=== PATIENT | male | born 1930 | race Caucasian/White ===

== ENCOUNTER 2018-04-03 10:13 | Emergency (ER) | payer OTHER, MEDICARE ==
--- NOTE | 2018-04-03 11:06 | RAD REPORT ---
EXAM DESCRIPTION: CT - Head Brain Wo Cont - 04/03/2018 10:59 am CLINICAL HISTORY: MENTAL STATUS CHANGE Drowsiness COMPARISON: Head Brain Wo Cont dated 04/09/2016; CT-STROKE BRAIN W/O CONTRAST dated 11/14/2014 TECHNIQUE: All CT scans are performed using dose optimization technique as appropriate and may inclu de automated exposure control or mA/KV adjustment according to patient size. FINDINGS: No intracranial hemorrhage, hydrocephalus or extra-axial fluid collection.Advanced general ized brain atrophy is present with advanced periventricular and deep white matter chronic microvascul ar ischemic changes.No areas of brain edema or evidence of midline shift. Mild fluid is seen in the sphenoid sinus. The calvarium is intact. IMPRESSION: No acute intracranial abnormality.
[2018-04-03 11:12] LABS: Urine Blood 1+ (NEG); Urine Glucose NEGATIVE (NEG); Urine Protein TRACE (NEG)
--- NOTE | 2018-04-03 11:16 | RAD REPORT ---
EXAM DESCRIPTION: RAD - Chest Single View - 04/03/2018 11:07 am CLINICAL HISTORY: Drowsiness Chest pain. COMPARISON: Abdomen 1 View (KUB) dated 07/28/2016; Chest Single View dated 06/24/2016; Chest Single View dated 04/16/2016; Chest Single View dated 04/15/2016 FINDINGS: Portable technique limits examination quality. The lungs are grossly clear. The heart is upper limit normal in size with sternotomy wires present. N o displaced fractures. IMPRESSION: No acute intrathoracic process suspected.
[2018-04-03 11:21] LABS: Urine Bacteria <20 /HPF (NONE SEEN); Urine Culture Reflex Order NOT NEEDED; Urine Mucus 2+ /HPF (NONE SEEN)
[2018-04-03] MEDS ORDERED: NA CHLORIDE 0.9% 250 ML ONE (11:21)
[2018-04-03] MEDS ORDERED: NA CHLORIDE 0.9% 1,000 ML ONE (12:10)
[2018-04-03 12:33] LABS: Absolute Lymphocytes (CBC) 1.6 K/uL (0.7-4.9); Absolute Monocytes 0.6 K/uL (0.1-1.3); Absolute Neutrophil 5.3 K/uL (1.8-8.0); Basophils % 0.5 % (0-1.3); Lymphocytes % 20.1 % (15.3-44.8); MCH 30.5 pg (27.0-35.0); MCV 87.9 fL (80-100); MPV 7.3 fL (7.6-11.3); Monocytes % 7.5 % (3.3-12.3); RBC Red Blood Cell Count 4.44 M/uL (4.33-5.43)
--- NOTE | 2018-04-03 12:33 | EKG ---
Test Date: 2018-04-03 Test Time: 10:26:15 Intel Analyst: GRISELDA MEASUREMENT RESULTS: Intervals: Rate: 61 LA: 154 QRSD: 78 QT: 408 QTc: 410 Russell: P: 66 LA: 154 QRS: 34 T: 69 INTERPRETIVE STATEMENTS: Normal sinus rhythm Normal ECG Compared to ECG 04/12/2016 14:51:40 T-wave abnormality no longer present Prolonged QT interval no longer present Electronically Signed On 04-03-18 12:32:40 REFRIGERATION SERVICE INSPECTOR by Dereje Malloy
[2018-04-03 12:39] LABS: Protime INR 1.08
[2018-04-03 13:06] LABS: BUN Blood Urea Nitrogen 18 mg/dL (7-18); Bicarbonate 32 mmol/L (21-32); Glucose Level 84 mg/dL (74-106); Potassium 4.4 mmol/L (3.5-5.1); Sodium Level 143 mmol/L (136-145)
[2018-04-03 13:07] LABS: ALT/SGPT 19 U/L (12-78); AST/SGOT 17 U/L (15-37); Albumin 3.1 g/dL (3.4-5.0); Alkaline Phosphatase 701 U/L (45-117); Bilirubin Direct 0.1 mg/dL (0-0.2); Bilirubin Total 0.6 mg/dL (0.2-1.0); NT PRO-BNP 200 pg/mL (<450); Protein, Total 6.7 g/dL (6.4-8.2); Troponin (Emerg Dept Use Only) < 0.02 ng/mL (0.0-0.045)
[2018-04-03 13:08] LABS: Magnesium 2.1 mg/dL (1.8-2.4)
--- NOTE | 2018-04-03 14:34 | RAD REPORT ---
EXAM DESCRIPTION: RAD - Ankle Right 3 View - 04/03/2018 2:20 pm CLINICAL HISTORY: PAIN COMPARISON: No comparisons FINDINGS: No fracture or dislocation of the right ankle is seen. Vascular calcification is evident. Small posterior and plantar calcaneal spurs are evident.
--- NOTE | 2018-04-03 17:12 | ER ---
Nurse's Notes [facility] Name: Ankit Lomeli Age: 87 yrs Sex: Male : 1930 Arrival Date: 04/03/2018 Time: 10:17 Bed 14 Private MD: Diagnosis: Weakness-General Presentation: 04/03 10:19 Presenting complaint: EMS states: reported that she tried to transfer the patient dm5 this morning and he wasn't able to help as much as he normally does. She states he is weaker on his left side than normal. Pt has had a previous stroke with left-sided deficits, dysphagia, expresses aphagia. Pt has had a recent UTI and has a strong urine smell at this time. Transition of care: patient was not received from another setting of care. Onset of symptoms was April 03, 2018. Risk Assessment: Do you want to hurt yourself or someone else? Unable to obtain. Initial Sepsis Screen: Does the patient meet any 2 criteria? Altered Mental Status. No. Patient's initial sepsis screen is negative. Does the patient have a suspected source of infection? Yes:. Care prior to arrival: Medication(s) given: Normal saline infusion, 250 ml IV initiated. 20 GA, in the right antecubital area. 10:19 Method Of Arrival: EMS: [facility] 5 10:19 Acuity: JUANITA 3 dm5 Triage Assessment: 10:29 General: Appears in no apparent distress. Behavior is calm, flat. Pain: Unable to use dm5 pain scale. pt unable to answer. Neuro: Level of Consciousness is awake, obeys commands, Oriented to pt unable to answer. Respiratory: Airway is patent Respiratory effort is even, unlabored, Breath sounds are clear. : Reports pt has a strong urine smell. 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 - Social history:: Smoking status: unknown. - Ebola Screening: : Unable to complete screening because. Screenin:40 Abuse screen: No signs of abuse noted. Nutritional screening: No deficits noted. aa5 Tuberculosis screening: No symptoms or risk factors identified. Fall Risk Fall in past 12 months (25 points). Secondary diagnosis (15 points) CVA, IV access (20 points). Mental Status- Overestimates/Forgets Limitations (15 pts.). Total Pérez Fall Scale indicates High Risk Score (45 or more points). Fall prevention measures have been instituted. Side Rails Up X 2 Placed Close to Nursing Station. Assessment: 10:40 General: Appears comfortable, Behavior is calm, cooperative. Pain: Denies pain. Neuro: aa5 Level of Consciousness is awake, alert, obeys commands, Oriented to person, Olive Grower are weak bilaterally but weaker on the left . Moves all extremities. Weakness in left arm(s) leg(s) Speech Speech is slow and pt has difficulty speaking . Pupils are irregular and reactive to light . Cardiovascular: Heart tones S1 S2 present Rhythm is regular. Respiratory: Airway is patent Respiratory effort is even, unlabored, Respiratory pattern is regular, symmetrical, Breath sounds are clear bilaterally. GI: Abdomen is round non-distended, Bowel sounds present X 4 quads. Abd is soft and non tender X 4 quads. : brief noted. EENT: absence of teeth noted . Derm: Skin is pink, warm \\T\\ dry. 11:00 Reassessment: Pt cleaned of urinary incontinence, foul smelling urine noted at this aa5 time. Clean brief applied. . 11:40 Reassessment: Pt's at bedside, updated on plan of care. PA at bedside. Bed remains aa5 in low position, side rails x 2, call seth within reach. . Neuro: Level of Consciousness is awake, alert, obeys commands, Oriented to person. Respiratory: Airway is patent Respiratory effort is even, unlabored, Respiratory pattern is regular, symmetrical. Derm: Skin is pink, warm \\T\\ dry. 12:00 Reassessment: Lab at bedside recollecting labs at this time . aa5 13:20 Neuro: Level of Consciousness is awake, alert, obeys commands, Oriented to person. aa5 Respiratory: Airway is patent Respiratory effort is even, unlabored, Respiratory pattern is regular, symmetrical. Derm: Skin is pink, warm \\T\\ dry. 13:20 Reassessment: Patient and/or family updated on plan of care and expected duration. Pain aa5 level reassessed. Pt's at bedside, states no complaints at this time. . 14:53 Reassessment: Patient and/or family updated on plan of care and expected duration. Pain aa5 level reassessed. Pt's at bedside. Bed remains in low position, side rails x 2, call seth within reach . Neuro: Level of Consciousness is awake, alert, obeys commands, Oriented to person. Respiratory: Airway is patent Respiratory effort is even, unlabored, Respiratory pattern is regular, symmetrical. Derm: Skin is pink, warm \\T\\ dry. 15:55 Reassessment: Pt resting in bed with eyes closed, respirations even and unlabored, skin aa5 is pink/warm/dry. Awaiting MRI at this time, pt's notified of wait time of approximately 1 hour for MRI per MRI staff. . 16:45 Reassessment: Pt cleaned of urine and bowel incontinence, brown stool was noted, clean aa5 brief applied. . 16:45 Neuro: Level of Consciousness is awake, alert, obeys commands, Oriented to person. aa5 Respiratory: Airway is patent Respiratory effort is even, unlabored, Respiratory pattern is regular, symmetrical. Derm: Skin is pink, warm \\T\\ dry. 17:00 Reassessment: business services assistant access representative spoke to pt's per PA. [facility] aa5 access representative spoke to pt's and Hospice services will be seeing patient starting tomorrow morning at 1000 as reported by pt's . MRI was cancelled per pt's refusal at this time, pt's states "I forgot that he can't lie down flat for the MRI" . 17:20 Reassessment: Pt cleaned of stool, clean brief applied. Awaiting ambulance for transfer aa5 home. . 17:30 Neuro: Level of Consciousness is awake, alert, obeys commands, Oriented to person. aa5 Respiratory: Airway is patent Respiratory effort is even, unlabored, Respiratory pattern is regular, symmetrical. Derm: Skin is pink, warm \\T\\ dry. Vital Signs: 10:29 BP 162 / 64; Pulse 58; Resp 17; Pulse Ox 100% on R/A; dm5 10:34 Temp 100; dm5 11:00 BP 163 / 72; Pulse 66; Resp 20 S; Pulse Ox 98% on R/A; aa5 12:13 BP 163 / 72; Pulse 67; Resp 20; Temp 99.6(O); Pulse Ox 96% on R/A; mh5 13:20 BP 158 / 72; Pulse 64; Resp 20 S; Pulse Ox 100% on R/A; aa5 14:54 BP 163 / 64; Pulse 63; Resp 19; Temp 100.3(O); Pulse Ox 98% ; aa5 15:58 BP 152 / 68; Pulse 64; Resp 18 S; Temp 100.0(O); Pulse Ox 100% on R/A; aa5 16:30 BP 145 / 70; Pulse 66; Resp 18 S; Temp 99.0(O); Pulse Ox 98% on R/A; aa5 17:30 BP 141 / 60; Pulse 65; Resp 16 S; Temp 98.4(O); Pulse Ox 98% on R/A; aa5 ED Course: 10:17 Patient arrived in ED. jl7 10:22 Tutu Patel PA is PHCP. cp 10:22 Elio López MD is Attending Physician. cp 10:27 Triage completed. dm5 10:[address] mw3 10:33 EKG done, by outdoor emergency care technician. reviewed by Tutu DIXON. at1 10:40 Patient has correct armband on for positive identification. Placed in gown. Bed in low aa5 position. Call light in reach. Side rails up X2. Adult w/ patient. Warm blanket given. surveillance monitor on. Pulse ox on. NIBP on. 10:40 Arm band placed on. aa5 10:58 CT completed. Patient tolerated procedure well. Patient moved to radiology. mw3 10:59 CT Head Brain wo Cont In Process Unspecified. EDMS 11:09 XRAY Chest (1 view) In Process Unspecified. EDMS 11:30 Maria G Fuentes, RN is Primary Nurse. aa5 12:08 Initial lab(s) drawn, by mn, sent to lab. First set of blood cultures drawn by bernardo martinez Urine collected: straight cath specimen, clear, Flu and/or RSV swab sent to lab. Maintain EMS IV. Dressing intact. 14:21 XRAY Ankle RIGHT 3 view In Process Unspecified. EDMS 17:50 No provider procedures requiring assistance completed. IV discontinued, intact, aa5 bleeding controlled, No redness/swelling at site. Pressure dressing applied. Administered Medications: 11:16 Drug: NS 0.9% 250 ml Route: IV; Rate: bolus; Site: right forearm; dm5 11:40 Follow up: IV Status: Completed infusion aa5 12:40 Drug: NS 0.9% 250 ml Route: IV; Rate: bolus; Site: right forearm; aa5 13:05 Follow up: IV Status: Completed infusion aa5 13:05 Drug: NS 0.9% 1000 ml Route: IV; Rate: 75 ml/hr; Site: left antecubital; aa5 17:00 Follow up: IV Status: Order to discontinue infusion aa5 Point of Care Testing: Blood Glucose: 15:58 Blood Glucose: 92 mg/dL; aa5 Ranges: Outcome: 17:09 Discharge ordered by . cp 17:55 Discharged to home via ambulance, with family, Report given to [facility] aa5 17:55 Condition: stable 17:55 Discharge instructions given to family, Instructed on discharge instructions, follow up and referral plans. Demonstrated understanding of instructions, follow-up care. 17:57 Patient left the ED. 5 Signatures: Dispatcher [employer] [facility] Ana Wiseman, RN RN Maria G Lantigua RN RN aa5 Dorothy Bloom, deicer element winder machine EKG Tat1 Tutu Patel PA PA cp Martinez, Maria 5 Aniket Herrera RN RN [email or web address] Belia Reyes mw3 Corrections: (The following items were deleted from the chart) 12:15 12:10 Patient has correct armband on for positive identification. Placed in gown. Bed aa5 in low position. Call light in reach. Side rails up X2. Adult w/ patient. [facility] 12:15 12:10 Warm blanket given. [place] [id number] 12:15 12:10 surveillance monitor on. Pulse ox on. NIBP on. mh5 aa5 15:06 14:54 BP 163 / 64; Pulse 63bpm; Resp 19bpm; Pulse Ox 98%; jl7 aa5 18: 17:55 Discharged to home via ambulance, with family, aa5 aa5 18: 17:55 Discharge instructions given to family, Instructed on discharge instructions, aa5 follow up and referral plans. Demonstrated understanding of instructions, follow-up care, [facility]
--- NOTE | 2018-04-03 17:13 | EDPHYS ---
Physician Documentation [facility] Name: Ankit Lomeli Age: 87 yrs Sex: Male : 1930 Arrival Date: 04/03/2018 Time: 10:17 Bed 14 Private MD: ED Physician Elio López HPI: 04/03 10:40 This 87 yrs old Male presents to ER via EMS with complaints of lethargic. cp 10:40 The patient's problem is reported as weakness, in the left upper extremity, in the left cp lower extremity. 10:40 Onset: The symptoms/episode began/occurred this morning. Duration: The episode is cp continuous. Associated signs and symptoms: Pertinent negatives: chest pain, combativeness, diaphoresis, diarrhea, vomiting. Severity of symptoms: in the emergency department the symptoms are unchanged despite home interventions. Patient's baseline: Neuro: orientated to person, Motor: left-sided weakness, Ambulation: unable to walk, stands for transfers, Speech: slow, The patient has a previous history of CVA. of patient reports she called EMS today because patient seemed weaker on left side than usual. reports having increased difficulty assisting patient with transferring from bed. reports symptoms have been gradual, but seemed worse since than morning when patient awoke. 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 - Social history:: Smoking status: unknown. - Ebola Screening: : Unable to complete screening because. ROS: 10:45 Constitutional: Negative for body aches, chills, fever. cp 10:45 Eyes: Negative for injury, pain, redness, and discharge. cp 10:45 ENT: Negative for drainage from ear(s), ear pain, difficulty swallowing, difficulty handling secretions. 10:45 Cardiovascular: Negative for chest pain. 10:45 Respiratory: Negative for cough, wheezing. 10:45 Abdomen/GI: Negative for vomiting, diarrhea, constipation, black/tarry stool, rectal bleeding. 10:45 Skin: Negative for cellulitis, rash. 10:45 Neuro: Positive for weakness, of the left arm and left leg, Negative for altered mental status. 10:45 All other systems are negative. Exam: 10:45 ECG was reviewed by the Attending Physician. cp 10:52 Constitutional: The patient appears in no acute distress, alert, awake, cp non-diaphoretic, non-toxic, well developed, well nourished. 10:52 Head/Face: Normocephalic, atraumatic. cp 10:52 Eyes: Periorbital structures: appear normal, Pupils: equal, round, and reactive to light and accomodation, Conjunctiva: normal, no exudate, no injection, Sclera: no appreciated abnormality, Lids and lashes: appear normal, bilaterally. 10:52 ENT: External ear(s): are unremarkable, Ear canal(s): are normal, clear, TM's: bulging, is not appreciated, bilaterally, dullness, bilaterally, erythema, is not appreciated, bilaterally, Nose: is normal, Mouth: Lips: moist, Oral mucosa: moist, Posterior pharynx: is normal, airway is patent, no erythema, no exudate. 10:52 Neck: ROM/movement: is normal, is supple, no range of motions limitations, no meningismus, no nuchal rigidity. 10:52 Chest/axilla: Inspection: normal, Palpation: is normal, no crepitus, no tenderness. 10:52 Cardiovascular: Rate: bradycardic, Rhythm: regular, Edema: is not appreciated, JVD: is not appreciated. 10:52 Respiratory: the patient does not display signs of respiratory distress, Respirations: normal, no use of accessory muscles, no retractions, no splinting, no tachypnea, labored breathing, is not present, Breath sounds: are clear throughout, no decreased breath sounds, no stridor, no wheezing. 10:52 Abdomen/GI: Inspection: abdomen appears normal, Bowel sounds: active, all quadrants, Palpation: abdomen is soft and non-tender, in all quadrants. 10:52 Musculoskeletal/extremity: Extremities: grossly normal except: noted in the right ankle: tenderness, There is no evidence of decreased ROM, deformity. 10:52 Skin: cellulitis, is not appreciated, no rash present. 10:52 Neuro: Orientation: no acute changes, per family, Mentation: no acute changes, per family, Motor: moves all fours, noted weakness left arm and left leg. 11:25 Radiologist reports: no acute findings cp Vital Signs: 10:29 BP 162 / 64; Pulse 58; Resp 17; Pulse Ox 100% on R/A; dm5 10:34 Temp 100; dm5 11:00 BP 163 / 72; Pulse 66; Resp 20 S; Pulse Ox 98% on R/A; aa5 12:13 BP 163 / 72; Pulse 67; Resp 20; Temp 99.6(O); Pulse Ox 96% on R/A; mh5 13:20 BP 158 / 72; Pulse 64; Resp 20 S; Pulse Ox 100% on R/A; aa5 14:54 BP 163 / 64; Pulse 63; Resp 19; Temp 100.3(O); Pulse Ox 98% ; aa5 15:58 BP 152 / 68; Pulse 64; Resp 18 S; Temp 100.0(O); Pulse Ox 100% on R/A; aa5 16:30 BP 145 / 70; Pulse 66; Resp 18 S; Temp 99.0(O); Pulse Ox 98% on R/A; aa5 17:30 BP 141 / 60; Pulse 65; Resp 16 S; Temp 98.4(O); Pulse Ox 98% on R/A; aa5 MDM: 10:26 Patient medically screened. cp 11:00 Differential diagnosis: CVA, TIA, metabolic disorder, drug effects, UTI, sepsis, cp pneumonia. 17:00 Refusal of service: The patient/guardian displays adequate decision making capability cp and despite a detailed discussion of alternatives, benefits, risks, and consequences refuses: MRI of brain to r/o acute CVA. 17:05 Data reviewed: vital signs, nurses notes, lab test result(s), EKG, radiologic studies, cp CT scan. 17:05 Counseling: I had a detailed discussion with the patient and/or guardian regarding: the cp historical points, exam findings, and any diagnostic results supporting the discharge/admit diagnosis, lab results, radiology results, to return to the emergency department if symptoms worsen or persist or if there are any questions or concerns that arise at home. 17:05 Test interpretation: by ED physician or midlevel provider: ECG, plain radiologic cp studies. Response to treatment: the patient's symptoms have mildly improved after treatment, and as a result, I will discharge patient. 04/03 10:25 Order name: Basic Metabolic Panel 04/03 10:26 Order name: CBC with Diff; Complete Time: 12:51 04/03 12:51 Interpretation: Normal except: HGB 13.5; HCT 39.0; MPV 7.3; EOSINOPHIL % 5.0. 04/03 10:26 Order name: LFT's; Complete Time: 13:13 04/03 13:13 Interpretation: Normal except: ALK 701; ALB 3.1; GLOB 3.6; A/G 0.9. 04/03 10:26 Order name: Magnesium; Complete Time: 13:13 04/03 10:26 Order name: NT PRO-BNP; Complete Time: 13:13 04/03 10:26 Order name: PT-INR; Complete Time: 12:51 04/03 13:14 Interpretation: Normal except: PT 12.7. 04/03 10:26 Order name: Troponin (emerg Dept Use Only); Complete Time: 13:13 04/03 10:26 Order name: Procalcitonin; Complete Time: 12:20 04/03 12:20 Interpretation: Procalcitonin < 0.05; Reviewed. 04/03 10:26 Order name: Lactate; Complete Time: 12:20 04/03 12:20 Interpretation: LAC 1.1; Reviewed. 04/03 10:26 Order name: Blood Culture Adult (2) cp 04/03 10:26 Order name: Urine Microscopic Only; Complete Time: 11:41 cp 04/03 11:41 Interpretation: Normal except: URBC 5-10. 04/03 10:26 Order name: Influenza Screen (a \T\ B); Complete Time: 12:51 cp 04/03 10:26 Order name: Basic Metabolic Panel; Complete Time: 13:13 EDMS 04/03 13:14 Interpretation: Normal except: GFR 68; CA 8.3. cp 04/03 11:08 Order name: Urine Dipstick--Ancillary (enter results); Complete Time: 11:20 bd 04/03 11:20 Interpretation: Normal except: UBLD 1+. cp 04/03 10:26 Order name: XRAY Chest (1 view); Complete Time: 11:20 cp 04/03 11:20 Interpretation: Report review. cp 04/03 10:26 Order name: EKG; Complete Time: 10:27 cp 04/03 10:26 Order name: Cardiac monitoring; Complete Time: 10:53 cp 04/03 10:26 Order name: EKG - Nurse/Tech; Complete Time: 12:08 cp 04/03 10:26 Order name: IV Saline Lock; Complete Time: 10:53 cp 04/03 10:26 Order name: Labs collected and sent; Complete Time: 10:53 cp 04/03 10:26 Order name: O2 Per Protocol; Complete Time: 10:53 cp 04/03 10:26 Order name: O2 Sat Monitoring; Complete Time: 10:53 cp 04/03 10:26 Order name: Urine Dipstick-Ancillary (obtain specimen); Complete Time: 10:54 cp 04/03 10:26 Order name: CT Head Brain wo Cont; Complete Time: 11:20 cp 04/03 11:21 Interpretation: Report reviewed. cp 04/03 13:21 Order name: XRAY Ankle RIGHT 3 view; Complete Time: 14:39 cp 04/03 14:40 Interpretation: Report reviewed. cp 04/03 10:26 Order name: Cath; Complete Time: 10:54 cp 04/03 11:35 Order name: Labs - recollect needed; Complete Time: 12:43 bd EC:45 Rate is 61 beats/min. Rhythm is regular. CA interval is normal. QRS interval is normal. cp QT interval is normal. T waves are Flattened in lead aVL. Interpreted by me. Reviewed by me. Administered Medications: 11:16 Drug: NS 0.9% 250 ml Route: IV; Rate: bolus; Site: right forearm; dm5 11:40 Follow up: IV Status: Completed infusion aa5 12:40 Drug: NS 0.9% 250 ml Route: IV; Rate: bolus; Site: right forearm; aa5 13:05 Follow up: IV Status: Completed infusion aa5 13:05 Drug: NS 0.9% 1000 ml Route: IV; Rate: 75 ml/hr; Site: left antecubital; aa5 17:00 Follow up: IV Status: Order to discontinue infusion aa5 Point of Care Testing: Blood Glucose: 15:58 Blood Glucose: 92 mg/dL; aa5 Ranges: Critical Glucose Levels:Adult <50 mg/dl or >400 mg/dl <40 mg/dl or >180 mg/dl Disposition: 18:40 Co-signature as Attending Physician, Elio López MD I agree with the assessment and kdr plan of care. Disposition: 04/03/18 17:09 Discharged to Home. Impression: Weakness - General. - Condition is Stable. - Discharge Instructions: Weakness. - SBAR form, Medication Reconciliation Form, Thank You Letter, Antibiotic Education, Prescription Opioid Use form. - Follow up: Private Physician; When: 1 - 2 days; Reason: Recheck today's complaints. - Problem is new. - Symptoms have improved. Signatures: Dispatcher [employer] [facility] Karen Acevedo Deana RN RN dm5 Elio López MD MD kdr Maria G Fuentes RN RN aa5 Tutu Patel PA PA cp Corrections: (The following items were deleted from the chart) 13:14 13:14 Normal except: GFR 68. cp cp 15:55 14:42 Brain Wo Cont+MRI.RAD.BRZ ordered. EDHI EDHI 17:08 14:42 MR STROKE PROTOCOL+MRI.RAD.BRZ ordered. [facility] EDHI 17:57 17:09 04/03/2018 17:09 Discharged to Home. Impression: Weakness - General. Condition is aa5 Stable. Forms are Medication Reconciliation Form, Thank You Letter, Antibiotic Education, Prescription Opioid Use. Follow up: Private Physician; When: 1 - 2 days; Reason: Recheck today's complaints. Problem is new. Symptoms have improved. cp
[2018-04-03 18:13] VITALS: BP 152/68; TEMP 100; O2SAT 100
== END 2018-04-03 17:57 | disposition home or self-care (01) ==
LOC: ER 10:13
DX: R53.1 Weakness (principal); I10 Essential (primary) hypertension; G30.9 Alzheimer's disease, unspecified; F02.80 Dementia in other diseases classified elsewhere, unspecified severity, without behavioral disturbance, psychotic disturbance, mood disturbance, and anxiety; G20 Parkinson's disease; F32.9 Major depressive disorder, single episode, unspecified; E03.9 Hypothyroidism, unspecified; Z79.82 Long term (current) use of aspirin; Z88.8 Allergy status to other drugs, medicaments and biological substances; Z95.1 Presence of aortocoronary bypass graft; Z86.73 Personal history of transient ischemic attack (TIA), and cerebral infarction without residual deficits
CPT/HCPCS: 36415; 70450; 71045; 73610; 80048; 80076; 83605; 83735; 83880; 84145; 84484; 85025; 85610; 87040 ×2; 87804 ×2; 93005; 96361; 96365; 99285; J7030; 81003; 81015; 82962